=== PATIENT | female | born 1955 | race Caucasian/White ===

== ENCOUNTER → 2017-06-30 | Outpatient (CLI) | payer OTHER ==
--- NOTE | 2017-07-03 11:47 | MM ---
Reason for exam: screening (asymptomatic). Last mammogram was performed 1 year and 3 months ago. History: Patient is postmenopausal. Benign left mammotome panel of the left breast, April 15, 2010. Took hormonal contraceptives for 6 years beginning at age 17. Physical Findings: A clinical breast exam by your physician is recommended on an annual basis and results should be correlated with mammographic findings. MG Screening Mammo w CAD Bilateral CC and MLO view(s) were taken. Prior study comparison: March 15, 2016, bilateral MG screening mammo w CAD. January 21, 2013, bilateral digital screening mammo w/CAD. The breast tissue is heterogeneously dense. This may lower the sensitivity of mammography. There is no discrete abnormality. No significant changes when compared with prior studies. ASSESSMENT: Negative, BI-RAD 1 RECOMMENDATION: Routine screening mammogram of both breasts in 1 year.
== END | disposition home or self-care (01) ==
LOC: RADMAMWWP 12:42
PROVIDERS: ATTEND Family Medicine
DX: Z12.31 Encounter for screening mammogram for malignant neoplasm of breast (principal)

== ENCOUNTER 2018-04-01 18:47 | Emergency (ER) | payer OTHER ==
[2018-04-01] MEDS ORDERED: SODIUM CHLORIDE 0.9% 1,000 ML IV SCH (19:15)
[2018-04-01] MEDS ORDERED: KETOROLAC 30 MG/ML 1 ML VIAL IVP STA (19:15)
[2018-04-01] MEDS ORDERED: SODIUM CHLORIDE 0.9% 1,000 ML IV ONE (19:15)
[2018-04-01 19:27] LABS: Basophils % (A) 0 %; Eosinophils # (A) 0.2 k/uL (0-0.7); Eosinophils % (A) 2 %; HGB 12.4 gm/dL (11.4-16.0); Lymphocytes # (A) 4.4 k/uL (1.0-4.8); Lymphocytes % (A) 32 %; MCH 28.7 pg (25.0-35.0); MCHC 33.4 g/dL (31.0-37.0); MCV 85.9 fL (80.0-100.0); Mean Platelet Volume 6.8; Monocytes # (A) 0.7 k/uL (0-1.0); Monocytes % (A) 5 %; Neutrophils # (A) 8.2 k/uL (1.3-7.7); Neutrophils % (A) 60 %; Platelet Count 317 k/uL (150-450); RBC 4.31 m/uL (3.80-5.40); RDW 14.2 % (11.5-15.5); WBC 13.8 k/uL (3.8-10.6)
--- NOTE | 2018-04-01 19:31 | ED ---
Female Urogenital HPI - General Source: patient, RN notes reviewed, old records reviewed Mode of arrival: ambulatory Limitations: no limitations <Brii Kasper - Last Filed: 04/01/18 20:39> <Bharat Yap - Last Filed: 04/01/18 21:02> - General Chief complaint: Urogenital Stated complaint: Abd/Back Pain Time Seen by Provider: 04/01/18 18:59 - History of Present Illness Initial comments: 62-year-old female presents emergency Department chief complaint 2 days of right -sided flank pain. She reports that he seems to radiate from her lower abdomen towards her back. Patient states that she's had no change in urination. Denies any dysuria. She reports that she had similar pain one month ago but subsided. Patient states she has had chest pain, shortness of breath. She reports she's had no nausea or vomiting. He does report she's had somewhat frequent diarrhea. (Brii Kasper) - Related Data Allergies Allergy/AdvReac Type Severity Reaction Status Date / Time No Known Allergies Allergy Verified 04/01/18 18:54 Review of Systems ROS Other: All systems not noted in ROS Statement are negative. <Brii Kasper - Last Filed: 04/01/18 20:39> ROS Other: All systems not noted in ROS Statement are negative. <Bharat Yap - Last Filed: 04/01/18 21:02> ROS Statement: Those systems with pertinent positive or pertinent negative responses have been documented in the HPI. Past Medical History Past Medical History: Hyperlipidemia, Hypertension History of Any Multi-Drug Resistant Organisms: None Reported Past Surgical History: Cholecystectomy Past Psychological History: No Psychological Hx Reported Smoking Status: Never smoker Past Alcohol Use History: None Reported Past Drug Use History: None Reported <Brii Kasper - Last Filed: 04/01/18 20:39> General Exam Limitations: no limitations General appearance: alert, in no apparent distress Head exam: Present: atraumatic, normocephalic, normal inspection Eye exam: Present: normal appearance, PERRL, EOMI. Absent: scleral icterus, conjunctival injection, periorbital swelling ENT exam: Present: normal exam, mucous membranes moist Neck exam: Present: normal inspection. Absent: tenderness, meningismus, lymphadenopathy Respiratory exam: Present: normal lung sounds bilaterally Cardiovascular Exam: Present: regular rate, normal rhythm, normal heart sounds. Absent: systolic murmur, diastolic murmur, rubs, gallop, clicks GI/Abdominal exam: Present: soft, tenderness (minimal RLQ and suprapubic tenderness), normal bowel sounds. Absent: distended, guarding, rebound, rigid Extremities exam: Present: normal inspection, full ROM, normal capillary refill. Absent: tenderness, pedal edema, joint swelling, calf tenderness Back exam: Present: normal inspection Neurological exam: Present: alert, oriented X3, CN II-XII intact Psychiatric exam: Present: normal affect, normal mood Skin exam: Present: warm, dry, intact, normal color. Absent: rash <Brii Kasper - Last Filed: 04/01/18 20:39> <Bharat Yap - Last Filed: 04/01/18 21:02> - General Exam Comments Initial Comments: 62-year-old female. Alert and oriented. No acute distress. (Brii Kasper) Course <Brii Kasper - Last Filed: 04/01/18 20:39> <Bharat Yap - Last Filed: 04/01/18 21:02> Vital Signs 04/01/18 04/01/18 18:52 19:27 Temperature 98.4 F Pulse Rate 88 74 Respiratory 18 18 Rate Blood Pressure 128/68 131/63 O2 Sat by Pulse 99 98 Oximetry - Reevaluation(s) Reevaluation #1: 04/01/18 20:41 Patient was reevaluated and feels better after receiving Toradol. (Brii Kasper) Medical Decision Making - Lab Data Result diagrams: 04/01/18 19:00 04/01/18 19:00 <Brii Kasper - Last Filed: 04/01/18 20:39> - Lab Data Result diagrams: 04/01/18 19:00 04/01/18 19:00 <Bharat Yap - Last Filed: 04/01/18 21:02> - Lab Data Lab Results 04/01/18 04/01/18 04/01/18 Range/Units 15:23 19:00 19:00 WBC 13.8 H (3.8-10.6) k/uL RBC 4.31 (3.80-5.40) m/uL Hgb 12.4 (11.4-16.0) gm/dL Hct 37.0 (34.0-46.0) % MCV 85.9 (80.0-100.0) fL MCH 28.7 (25.0-35.0) pg MCHC 33.4 (31.0-37.0) g/dL RDW 14.2 (11.5-15.5) % Plt Count 317 (150-450) k/uL Neutrophils % 60 % Lymphocytes % 32 % Monocytes % 5 % Eosinophils % 2 % Basophils % 0 % Neutrophils # 8.2 H (1.3-7.7) k/uL Lymphocytes # 4.4 (1.0-4.8) k/uL Monocytes # 0.7 (0-1.0) k/uL Eosinophils # 0.2 (0-0.7) k/uL Basophils # 0.0 (0-0.2) k/uL Sodium 140 (137-145) mmol/L Potassium 4.1 (3.5-5.1) mmol/L Chloride 105 (98-107) mmol/L Carbon Dioxide 22 (22-30) mmol/L Anion Gap 13 mmol/L BUN 28 H (7-17) mg/dL Creatinine 1.20 H (0.52-1.04) mg/dL Est GFR (CKD-EPI)AfAm 55 (>60 ml/min/1.73 sqM) Est GFR (CKD-EPI)NonAf 48 (>60 ml/min/1.73 sqM) Glucose 115 H (74-99) mg/dL Plasma Lactic Acid [place] (0.7-2.0) mmol/L Calcium 9.5 (8.4-10.2) mg/dL Total Bilirubin 0.6 (0.2-1.3) mg/dL AST 23 (14-36) U/L ALT 25 (9-52) U/L Alkaline Phosphatase 104 (38-126) U/L Total Protein 7.4 (6.3-8.2) g/dL Albumin 4.1 (3.5-5.0) g/dL Amylase 84 (30-110) U/L Lipase 176 (23-300) U/L Urine Color Yellow Urine Appearance Cloudy H (Clear) Urine pH 5.0 (5.0-8.0) Ur Specific [place] 1.021 (1.001-1.035) Urine Protein Trace H (Negative) Urine Glucose (UA) Negative (Negative) Urine Ketones Negative (Negative) Urine Blood Negative (Negative) Urine Nitrite Negative (Negative) Urine Bilirubin Negative (Negative) Urine Urobilinogen 2.0 (<2.0) mg/dL Ur Leukocyte Esterase Large H (Negative) Urine RBC 12 H (0-5) /hpf Urine WBC 30 H (0-5) /hpf Ur Squamous Epith Cells 9 H (0-4) /hpf Hyaline Casts 20 H (0-2) /lpf Urine Mucus Occasional H (None) /hpf 04/01/18 Range/Units 19:00 WBC (3.8-10.6) k/uL RBC (3.80-5.40) m/uL Hgb (11.4-16.0) gm/dL Hct (34.0-46.0) % MCV (80.0-100.0) fL MCH (25.0-35.0) pg MCHC (31.0-37.0) g/dL RDW (11.5-15.5) % Plt Count (150-450) k/uL Neutrophils % % Lymphocytes % % Monocytes % % Eosinophils % % Basophils % % Neutrophils # (1.3-7.7) k/uL Lymphocytes # (1.0-4.8) k/uL Monocytes # (0-1.0) k/uL Eosinophils # (0-0.7) k/uL Basophils # (0-0.2) k/uL Sodium (137-145) mmol/L Potassium (3.5-5.1) mmol/L Chloride (98-107) mmol/L Carbon Dioxide (22-30) mmol/L Anion Gap mmol/L BUN (7-17) mg/dL Creatinine (0.52-1.04) mg/dL Est GFR (CKD-EPI)AfAm (>60 ml/min/1.73 sqM) Est GFR (CKD-EPI)NonAf (>60 ml/min/1.73 sqM) Glucose (74-99) mg/dL Plasma Lactic Acid [place] 1.8 (0.7-2.0) mmol/L Calcium (8.4-10.2) mg/dL Total Bilirubin (0.2-1.3) mg/dL AST (14-36) U/L ALT (9-52) U/L Alkaline Phosphatase (38-126) U/L Total Protein (6.3-8.2) g/dL Albumin (3.5-5.0) g/dL Amylase (30-110) U/L Lipase (23-300) U/L Urine Color Urine Appearance (Clear) Urine pH (5.0-8.0) Ur Specific [place] (1.001-1.035) Urine Protein (Negative) Urine Glucose (UA) (Negative) Urine Ketones (Negative) Urine Blood (Negative) Urine Nitrite (Negative) Urine Bilirubin (Negative) Urine Urobilinogen (<2.0) mg/dL Ur Leukocyte Esterase (Negative) Urine RBC (0-5) /hpf Urine WBC (0-5) /hpf Ur Squamous Epith Cells (0-4) /hpf Hyaline Casts (0-2) /lpf Urine Mucus (None) /hpf Disposition <Brii Kasper - Last Filed: 04/01/18 20:39> Is patient prescribed a controlled substance at d/c from ED?: No <Bharat Yap - Last Filed: 04/01/18 21:02> Clinical Impression: Urinary tract infection Disposition: HOME SELF-CARE Instructions: Urinary Tract Infection in Women (ED) Prescriptions: Ciprofloxacin HCl [Cipro] 500 mg PO Q12HR #28 tablet Referrals: Noé Fay MD [Primary Care Provider] - 1-2 days
[2018-04-01 19:35] LABS: Appearance,Urine Cloudy (Clear); Bilirubin,Urine Negative (Negative); Blood,Urine Negative (Negative); Color,Urine Yellow; Glucose,Urine (UA) Negative (Negative); Hyaline Casts,Urine 20 /lpf (0-2); Ketones,Urine Negative (Negative); Leukocyte Esterase,Urine Large (Negative); Mucus,Urine Occasional /hpf; Nitrite,Urine Negative (Negative); Protein,Urine Trace (Negative); RBC,Urine 12 /hpf (0-5); Specific Gravity,Urine 1.021 (1.001-1.035); Squamous Epithelial Cell,Urine 9 /hpf (0-4); WBC,Urine 30 /hpf (0-5)
[2018-04-01 19:37] LABS: Albumin 4.1 g/dL (3.5-5.0); Calcium 9.5 mg/dL (8.4-10.2); Potassium 4.1 mmol/L (3.5-5.1); Total Bilirubin 0.6 mg/dL (0.2-1.3); Total Protein 7.4 g/dL (6.3-8.2)
--- NOTE | 2018-04-01 19:59 | XR ---
EXAMINATION TYPE: XR KUB DATE OF EXAM: 04/01/2018 CLINICAL HISTORY: Right-sided abdominal pain TECHNIQUE: Supine, upright views of the abdomen. COMPARISON: Prior abdominal film dated 01/10/2011. FINDINGS: Scattered gas is seen in non-distended small bowel loops. Gas and fecal material is seen in non-distended colon. There is no visceromegaly, pneumoperitoneum, or abnormal calcification appr eciated. Metallic clips projects on the right side of the upper abdomen most likely from prior fabian cystectomy. The lung bases are clear and the osseous structures are intact. IMPRESSION: Overall nonobstructive bowel gas pattern.
[2018-04-01] MEDS ORDERED: cefTRIAXone 2,000 MG in SODIUM CHLORIDE 0.9% 100 ML IVPB STA (20:39)
[2018-04-01] MEDS ORDERED: cefTRIAXone IN SWFI 2,000 MG/20 ML SYRINGE IVP STA (20:44)
--- NOTE | 2018-04-01 21:01 | CT ---
EXAMINATION TYPE: CT abdomen pelvis wo con DATE OF EXAM: 04/01/2018 COMPARISON: HISTORY: Back pain that radiates into stomach CT DLP: 1836 mGycm Automated exposure control for dose reduction was used. TECHNIQUE: Helical acquisition of images was performed from the lung bases through the pelvis. FINDINGS: LUNG BASES: No significant abnormality is appreciated. LIVER/GB: No distinction of the intrahepatic radicles or focal intrahepatic lesions. At the gallbladd er fossa is a rounded area of diminished attenuation suggestive of a partially contracted gallbladder measuring 1.6 cm in diameter. Increased attenuation along the medial and lateral wall of the gallbla dder could be due to metallic clips or calcifications in the gallbladder were suggestive of a possibl e porcelain gallbladder. PANCREAS: No significant abnormality is seen. SPLEEN: No significant abnormality is seen. ADRENALS: No significant abnormality is seen. KIDNEYS: No significant abnormality is seen. No calcifications or hydronephrosis. FREE AIR: No free air is visualized RETROPERITONEAL ADENOPATHY: None visualized REPRODUCTIVE ORGANS: No significant abnormality is seen URINARY BLADDER: No significant abnormality is seen. PELVIC ADENOPATHY: None visualized. OSSEOUS STRUCTURES: Vacuum phenomena at the L3-L4, L4-L5 and L5-S1 intervertebral disc spaces with lo ss of height of the L5-S1 intervertebral disc space indicative of advanced osteoarthritic changes. BOWEL: Normal appendix. Multiple colonic diverticula more proximally over the descending colon and si gmoid region indicating diverticulosis without abscess formation. OTHER: Bilateral fat-containing hernias without bowel involvement. Fat-containing umbilical hernia me asuring 8 mm in diameter. No bowel involvement or bowel obstruction. IMPRESSION: INCREASED ATTENUATION AT THE MEDIAL AND LATERAL WALL OF THE CONTRACTED GALLBLADDER SUGGESTING THE POS SIBILITY OF CALCIFICATIONS OR COARSENING GALLBLADDER. NO CALCIFICATIONS OR HYDRONEPHROSIS IN EITHER KIDNEY. NO FREE AIR OR BOWEL OBSTRUCTION. NORMAL APPENDIX COLONIC DIVERTICULOSIS WITHOUT ABSCESS FORMATION. ADVANCED OSTEOARTHRITIC CHANGES THROUGHOUT THE LUMBAR SPINE.. BILATERAL FAT-CONTAINING INGUINAL HERNI WITHOUT BOWEL INVOLVEMENT OR BOWEL OBSTRUCTION. FAT CONTAINING 8 MM UMBILICAL HERNIA WITHOUT BOWEL INVOLVEMENT OR BOWEL OBSTRUCTION.
[2018-04-01 21:25] VITALS: BP 119/58; PULSE 66; RESP 19; TEMP 97.7
== END 2018-04-01 21:31 | disposition home or self-care (01) ==
LOC: EC 18:47
DX: N39.0 Urinary tract infection, site not specified (principal); Z90.49 Acquired absence of other specified parts of digestive tract
CPT/HCPCS: 36415; 80053; 82150; 83605; 83690; 85025; 81001; 74018; 74176; 99285; 96374; 96375; 96361 ×2; J0696; J1885

== ENCOUNTER → 2019-02-01 | Outpatient (CLI) | payer MEDICARE ==
--- NOTE | 2019-02-01 13:19 | BD ---
EXAMINATION TYPE: Axial Bone Density DATE OF EXAM: 02/01/2019 COMPARISON: NONE CLINICAL HISTORY: Height: 60 Weight: 219.8 FRAX RISK QUESTIONS: Alcohol (3 or more units per day): no Family History (Parent hip fracture): yes-mother Glucocorticoids (More than 3mos): no (Ex: prednisone, prednisolone, methylprednisolone, dexamethasone, and hydrocortisone). History of Fracture in Adulthood: no Secondary Osteoporosis: 1. Type 1 Diabetes: no 2. Hyperthyroidism: no 3. Menopause before 45: no 4. Malnutrition: no 5. Chronic liver disease: no Rheumatoid Arthritis: no Current Tobacco Use: no RISK FACTORS HISTORY OF: Family History of Osteoporosis: yes Active: yes Diet low in dairy products/other sources of calcium: no Postmenopausal woman: age 48 Lost more than 2 inches in height since high school: no MEDICATIONS: lisinopril, cholesterol med Additional History: pt had cervical cancer EXAM MEASUREMENTS: Bone mineral densitometry was performed using the [employer] System. Bone mineral density as measured about the Lumbar spine is: ----- L1-L4(G/cm2): 1.435 T Score Values are as follows: ----- L2: 2.0 ----- L3: 3.3 ----- L4: 2.1 ----- L1-L4: 2.1 Bone mineral density : baseline Bone mineral density about the R hip (g/cm2): 0.837 Bone mineral density about the L hip (g/cm2): 0.893 T Score values are as follows: -----R Neck: -1.4 -----L Neck: -1.0 -----R Total: -0.5 -----L Total: -0.8 Bone mineral density : baseline IMPRESSION: No evidence for osteoporosis or osteopenia. NOTE: T-SCORE=SD OF THE YOUNG ADULT MEAN.
--- NOTE | 2019-02-01 14:32 | MM ---
Reason for exam: screening (asymptomatic). Last mammogram was performed 1 year and 7 months ago. History: Patient is postmenopausal and history of other cancer. Benign left mammotome panel of the left breast, April 15, 2010. Took hormonal contraceptives for 6 years beginning at age 17. Physical Findings: A clinical breast exam by your physician is recommended on an annual basis and results should be correlated with mammographic findings. MG Screening Mammo w CAD Bilateral CC and MLO view(s) were taken. Prior study comparison: June 30, 2017, bilateral MG screening mammo w CAD. March 15, 2016, bilateral MG screening mammo w CAD. There are scattered fibroglandular densities. Previous mammotome biopsy in the left breast. There is chronic nodularity in the right axilla. There is no discrete abnormality. ASSESSMENT: Benign, BI-RAD 2 RECOMMENDATION: Routine screening mammogram of both breasts in 1 year.
== END | disposition home or self-care (01) ==
LOC: RADMAMWWP 12:42
PROVIDERS: ATTEND Family Medicine
DX: Z12.31 Encounter for screening mammogram for malignant neoplasm of breast (principal); Z13.820 Encounter for screening for osteoporosis
CPT/HCPCS: 77067; 77080

== ENCOUNTER → 2020-07-28 | Outpatient (CLI) | payer MEDICARE ==
--- NOTE | 2020-07-29 11:55 | MM ---
Reason for exam: screening (asymptomatic). Last mammogram was performed 1 year and 6 months ago. History: Patient is postmenopausal and history of other cancer. Benign left mammotome panel of the left breast, April 15, 2010. Took hormonal contraceptives for 6 years beginning at age 17. Physical Findings: A clinical breast exam by your physician is recommended on an annual basis and results should be correlated with mammographic findings. MG Screening Mammo w CAD Bilateral CC and MLO view(s) were taken. Prior study comparison: February 01, 2019, bilateral MG screening mammo w CAD. June 30, 2017, bilateral MG screening mammo w CAD. There are scattered fibroglandular densities. Previous mammotome biopsy in the left breast. There is no discrete abnormality. ASSESSMENT: Benign, BI-RAD 2 RECOMMENDATION: Routine screening mammogram of both breasts in 1 year.
== END | disposition home or self-care (01) ==
LOC: RADMAMWWP 08:37
PROVIDERS: ATTEND Family Medicine
DX: Z12.31 Encounter for screening mammogram for malignant neoplasm of breast (principal)
CPT/HCPCS: 77067

== ENCOUNTER → 2020-11-23 | Outpatient (CLI) | payer MEDICARE ==
--- NOTE | 2020-11-23 14:15 | XR ---
Lumbosacral spine HISTORY: M [age], low back pain 5 views of the lumbosacral spine, correlation CT 04/01/2018 Bone mineralization is reduced. There is no evident spondylolysis or spondylolisthesis. There is over lying artifact. Surgical clips are present in the right upper quadrant. Lumbar vertebral bodies show preserved height. Loss of disc height is present at intervertebral levels. Questionable striated appe arance to vertebral bodies may be indicative of underlying hemangiomas. There are dense vascular calc ifications. Sclerosis present in the posterior elements of the lumbar spine. IMPRESSION: Degenerative disc disease, facet arthropathy. Additional findings above, lumbar MRI may b e of benefit. Exam somewhat0 limited by patient body habitus.
== END | disposition home or self-care (01) ==
LOC: RADXRMAIN 09:47
PROVIDERS: ATTEND Nurse Practitioner Women's Health
DX: M51.36 Other intervertebral disc degeneration, lumbar region (principal); M51.37 Other intervertebral disc degeneration, lumbosacral region; M12.9 Arthropathy, unspecified
CPT/HCPCS: 72110

== ENCOUNTER → 2022-03-04 | Outpatient (CLI) | payer MEDICARE ==
--- NOTE | 2022-03-07 11:08 | MM ---
Reason for Exam: Screening (asymptomatic). Last mammogram was performed 1 year(s) and 8 month(s) ago. Patient History: Menarche at age 12. First Full-Term at age 23. Postmenopausal. Other cancer. Hormonal Contraceptives for 6 years from age 17 until age 23. 04/15/2010, Benign Core Biopsy on the left side. Risk Values: Cait 5 year model risk: 2.0%. NCI Lifetime model risk: 6.6%. Prior Study Comparison: 06/30/2017 Bilateral Screening Mammogram, [facility]. 02/01/2019 Bilateral Screening Mammogram, [facility]. 07/28/2020 Bilateral Screening Mammogram, [facility]. Tissue Density: There are scattered fibroglandular densities. Findings: Analyzed By CAD. There is no suspicious group of microcalcifications or new suspicious mass in either breast. Stable asymmetric density inner margin right breast unchanged from multiple prior exams. Benign-appearing lymph nodes stable. Previous biopsy clip marker in the left breast noted. Overall Assessment: Benign, BI-RAD 2 Management: Screening Mammogram of both breasts in 1 year. A clinical breast exam by your physician is recommended on an annual basis and results should be correlated with mammographic findings. Electronically signed and approved by: Magnus Valencia M.D. Radiologis
== END | disposition home or self-care (01) ==
LOC: RADMAMWWP 13:11
PROVIDERS: ATTEND Family Medicine
DX: Z12.31 Encounter for screening mammogram for malignant neoplasm of breast (principal)
CPT/HCPCS: 77067